=== PATIENT | female | born 1945 | race Caucasian/White ===

== ENCOUNTER 2016-12-03 08:42 | Outpatient (CLI) | payer MEDICARE, MEDICAID ==
--- NOTE | 2016-12-03 10:33 | RAD ---
TWO VIEW CHEST: HISTORY: Dyspnea. COMPARISON: 09/28/2015 FINDINGS: Volume expansion of COPD with flattened diaphragms. The heart is mildly enlarged. Mild aortic calc ification. Vascular markings are upper normal but stable. No infiltrate, edema, or significant eff usion identified. No evidence of significant interval change. Osseous structures are unremarkable. IMPRESSION: 1. Volume expansion of chronic obstructive pulmonary disease. 2. Mild cardiomegaly. 3. No acute infiltrate or vascular congestion. POS: [facility]
== END 2016-12-03 08:43 | disposition home or self-care (01) ==
LOC: RAD 08:42
PROVIDERS: ATTEND Internal Medicine Critical Care Medicine
DX: R06.00 Dyspnea, unspecified (principal); J44.9 Chronic obstructive pulmonary disease, unspecified; I51.7 Cardiomegaly
CPT/HCPCS: 71020

== ENCOUNTER 2017-12-23 09:33 | Outpatient (CLI) | payer MEDICARE, MEDICAID ==
--- NOTE | 2017-12-23 10:35 | RAD ---
PA AND LATERAL CHEST: History: Cough, COPD. FINDINGS: Comparison made with exam of 12-03-16. Changes of COPD are again seen. The heart size is mildly enlarged but sable. The lungs are well expan ded without focal areas of consolidation, pneumothoraces or pleural effusions. There are mild degener ative changes in the spine. IMPRESSION: Stable exam. No acute process. POS: [facility]
== END 2017-12-23 09:34 | disposition home or self-care (01) ==
LOC: RAD-FRANK 09:33
PROVIDERS: ATTEND Nurse Practitioner Family
DX: J44.9 Chronic obstructive pulmonary disease, unspecified (principal); R05 Cough
CPT/HCPCS: 71046

== ENCOUNTER 2018-02-16 08:54 | Inpatient (IN) | payer MEDICARE, MEDICAID ==
[2018-02-16 10:07] LABS: #Lymphocytes 1.3 thou/uL (1.20-3.40); #Monocytes 0.6 thou/uL (0.11-0.59); #Neutrophils 8.2 thou/uL (1.40-6.50); %Basophils 0.2 % (0.0-1.0); %Eosinophils 0.3 % (0.0-10.0); %Monocytes 6.1 % (0.0-10.0); %Neutrophils 80.5 % (42.0-75.0); Hemoglobin 11.8 g/dL (12.0-16.0); Mean Corpuscular HGB CONC 32.1 g/dL (32.0-36.0); Mean Corpuscular Hemoglobin 31.5 pg (27.0-31.0); Mean Corpuscular Volume 98.3 fL (78.0-98.0); Mean Platelet Volume 8.5 fL (7.4-10.4); Platelet Count 170 thou/uL (130-400); RBC Distribution Width 12.4 % (11.5-14.5); Red Blood Cell (RBC) Count 3.73 mill/uL (4.20-5.40); White Blood Cell (WBC) Count 10.2 thou/uL (4.8-10.8)
[2018-02-16 10:28] LABS: ALT (SGPT) 17 U/L (8-55); AST (SGOT) 22 U/L (5-34); Albumin 4.1 g/dL (3.4-4.8); Alkaline Phosphatase 71 U/L (40-150); BUN (Urea Nitrogen) 39 mg/dL (9.8-20.1); Bilirubin, Total 0.5 mg/dL (0.2-1.2); CK (CPK) 102 U/L (29-168); Calc. Creatinine Clearance 0 mL/min (70-130); Estimated GFR-MDRD 54; Globulin 2.7 g/dL (2.4-3.5); Glucose 133 mg/dL (83-110); Lipase 38 U/L (8-78); Protein, Total 6.8 g/dL (6.0-8.3)
[2018-02-16 10:39] LABS: Anion Gap 18 mmol/L (10-20); Carbon Dioxide 36 mmol/L (23-31); Chloride 93 mmol/L (98-107); Potassium 3.5 mmol/L (3.5-5.1); Sodium 143 mmol/L (136-145)
[2018-02-16 10:49] LABS: CKMB 4.7 ng/mL (0-6.6)
[2018-02-16] MEDS ORDERED: Aspirin Chewable 81 MG TAB ONE (11:05)
[2018-02-16 11:10] LABS: Bilirubin Negative (Negative); Blood, Urine Negative (Negative); Clarity CLEAR (Clear); Glucose, Urine (Dipstick) Negative (Negative); Leukocyte Small (Negative); Nitrite Negative (Negative); Protein, Urine (Dipstick) Negative (Neg-Trace); Specific Gravity, Urine 1.015 (1.002-1.036); Urobilinogen 0.2 mg/dL (0.2-1.0); pH, Urine 6.5 (5.0-9.0)
[2018-02-16 11:13] LABS: Bacteria/HPF Rare-Few HPF (None Seen); Hyaline Casts/LPF 0-3 HYALINE CAST LPF (0-3 Hyaline); Pathc Cast-AUWi Flag 0.58 (0-2.49); RBC/HPF 0-3 HPF (0-3); Squamous Epithelial 0-3 HPF (0-3)
--- NOTE | 2018-02-16 11:24 | CT ---
CT HEAD NONCONTRAST: HISTORY: Fall. Head injury. FINDINGS: There is no evidence of acute intracranial hemorrhage or infarct. Ventricles appear normal in size, shape, and position. Diffuse cortical atrophy and mild chronic ischemic small-vessel disease. There is no mass effect or shift of midline structures. Scalp swelling overlies the posterior cranium. IMPRESSION: No acute intracranial abnormalities are demonstrated. POS: [facility]
--- NOTE | 2018-02-16 11:34 | CT ---
CT CERVICAL SPINE NONCONTRAST: HISTORY: Fall. Neck injury. FINDINGS: Vertebral body heights and alignment are maintained. Cervicothoracic junction intact. No acute frac ture or dislocation. Multilevel disk space narrowing. Prominent osteophytosis and central canal isaac nosis. Prominent calcification within the arterial structures with severe stenosis of the left carotid arter y. Large cystic lesion of the left thyroid lobe measures at least 2.7 cm greatest diameter. IMPRESSION: 1. Degenerative changes cervical spine. No acute osseous abnormalities are demonstrated. 2. Atherosclerosis. POS: [facility]
--- NOTE | 2018-02-16 11:59 | RAD ---
PORTABLE AP CHEST XRAY: DATE: 02/16/2018. HISTORY Cough and COPD. COMPARISON: 12/23/2017. FINDINGS: Cardiac silhouette is magnified by projection but does appear mildly enlarged and stable in size. Th ere are mild chronic lung changes seen. No focal area of consolidation or pleural fluid is identifie d. Vascular calcifications are seen in the thoracic aorta. There is osteopenia. The chest is stabl e from prior study. IMPRESSION: 1. No acute cardiopulmonary process. 2. Stable chest with chronic lung changes. 3. Cardiomegaly. POS: [facility]
[2018-02-16 12:30] LABS: Actual Bicarbonate (HCO3a) 40.5 mEq/L (22-28); Analyzer IN Cardio ER; Base Excess (BEa) 10.2 mEq/L (-2.0 to +3.0); Calcium, Ionized 1.19 mmol/L (1.12-1.30); Carboxyhemoglobin (COHb) 0.7 gm% (0.0-3.0); Hemoglobin (Hb) 12.9 g/dL (12.0-16.0); O2 Tension (PaO2) 66.7 mmHg (> 70.0); Potassium - ABG Lab 3.36 mmol/L (3.70-5.30); pH, Arterial 7.27 (7.35-7.45)
--- NOTE | 2018-02-16 12:31 | RAD ---
AP PELVIS RADIOGRAPH: DATE: 02/16/2018. HISTORY: Mechanical fall at home. Trauma. COMPARISON: None available. FINDINGS: There is postsurgical change involving the bilateral hips with antegrade intramedullary mireya and dynam ic compression-type screw transfixing the right proximal femur and a left total hip prosthesis noted in place. The distal aspects of each femoral component is not imaged on this exam. There is otherwi se no definite hardware complication seen. No acute fracture or dislocation is seen. There are neville te fractures deformities involving the left superior and inferior pubic rami. Osteopenia is present. Vascular calcifications overlie the pelvis. IMPRESSION: 1. No obvious acute fracture is seen, and there is no dislocation. 2. Postsurgical changes bilateral hips. 3. Remote fracture and deformities of the left superior and inferior pubic rami. 4. Osteopenia. POS: [facility]
[2018-02-16 12:33] LABS: ALV-art Gradient 70.475 (0-20); CO2 Tension 89.9 mmHg (35.0-45.0); Puncture Site LR
[2018-02-16] MEDS ORDERED: Dexamethasone 10 MG/ML VIAL ONE (13:00)
[2018-02-16] MEDS ORDERED: Magnesium 2 GM/50 ML 2 GM in Premix Bag 1 BAG IVPB SCH (13:00)
[2018-02-16] MEDS ORDERED: Albuterol Sulfate 2.5 mg/0.5 ml Neb ONE ×2 (13:21)
[2018-02-16 13:50] LABS: Troponin I 0.061 ng/mL (< 0.028)
[2018-02-16] MEDS ORDERED: Ondansetron PF 4 MG/2 ML Vial IVP PRN ×2 (18:01→19:13)
[2018-02-16] MEDS ORDERED: Ondansetron ODT 4 MG TAB SL PRN (18:01)
[2018-02-16] MEDS ORDERED: Sodium Chloride 0.9% 1,000 ML IV SCH (18:01)
[2018-02-16 18:06] LABS: Troponin I 0.085 ng/mL (< 0.028)
[2018-02-16] MEDS ORDERED: Ondansetron ODT 4 MG TAB PO PRN (19:13)
[2018-02-16] MEDS: Famotidine 20 MG TAB PO SCH (21:00)
[2018-02-16] MEDS ORDERED: Dexamethasone 4 mg/ml Vial SLOW IVP SCH (21:00)
[2018-02-17] MEDS ORDERED: Labetalol HCl 100 MG/20 ML VIAL SLOW IVP PRN (03:49)
[2018-02-17] MEDS ORDERED: hydrALAZINE 20 MG/ML VIAL SLOW IVP PRN (03:49)
[2018-02-17 04:52] LABS: #Lymphocytes 0.4 thou/uL (1.20-3.40); #Monocytes 0.2 thou/uL (0.11-0.59); #Neutrophils 4.4 thou/uL (1.40-6.50); %Eosinophils 0.2 % (0.0-10.0); %Monocytes 3.1 % (0.0-10.0); %Neutrophils 89.7 % (42.0-75.0); Hemoglobin 10.7 g/dL (12.0-16.0); Mean Corpuscular HGB CONC 32.7 g/dL (32.0-36.0); Mean Corpuscular Hemoglobin 32.1 pg (27.0-31.0); Mean Corpuscular Volume 98.4 fL (78.0-98.0); Mean Platelet Volume 9.5 fL (7.4-10.4); Platelet Count 129 thou/uL (130-400); RBC Distribution Width 12.6 % (11.5-14.5); Red Blood Cell (RBC) Count 3.32 mill/uL (4.20-5.40); White Blood Cell (WBC) Count 4.9 thou/uL (4.8-10.8)
[2018-02-17 05:13] LABS: ALT (SGPT) 15 U/L (8-55); AST (SGOT) 21 U/L (5-34); Albumin 3.6 g/dL (3.4-4.8); Alkaline Phosphatase 52 U/L (40-150); Anion Gap 12 mmol/L (10-20); BUN (Urea Nitrogen) 29 mg/dL (9.8-20.1); Bilirubin, Total 0.5 mg/dL (0.2-1.2); Calc. Creatinine Clearance 46 mL/min (70-130); Calcium 9.4 mg/dL (7.8-10.44); Carbon Dioxide 36 mmol/L (23-31); Chloride 98 mmol/L (98-107); Estimated GFR-MDRD 60; Globulin 2.5 g/dL (2.4-3.5); Glucose 182 mg/dL (83-110); Potassium 3.3 mmol/L (3.5-5.1); Protein, Total 6.1 g/dL (6.0-8.3); Sodium 143 mmol/L (136-145)
[2018-02-17] MEDS ORDERED: Nitroglycerin 2% Ointment 1 INCH/1 GM Packet ONE (08:10)
[2018-02-17] MEDS ORDERED: Nitroglycerin 2% Ointment 1 INCH/1 GM Packet TOP SCH (08:30)
--- NOTE | 2018-02-17 10:18 | ULT ---
CAROTID DOPPLER: DATE: 02/17/2018. PROVIDED CLINICAL HISTORY: Syncope. FINDINGS: Hyde scale and color Doppler sonography with spectral analysis was performed of the extracranial campos tid system bilaterally. There is conspicuous atherosclerotic plaque involving the left common caroti d artery and left proximal internal carotid artery. There is elevation of peak systolic velocity wit hin the left internal carotid artery in the mid portion to 291.2 cm/s, with a corresponding ICA to CC A ratio of 3.5. There is elevation of peak systolic velocity within the distal right internal caroti d artery to 159.4 cm/s with a corresponding ICA to CCA ratio of 1. Antegrade flow is seen in the rig ht vertebral artery. No flow is detected within the left vertebral artery. IMPRESSION: 1. Findings compatible with severe left internal carotid artery stenosis. 2. Possible moderate right internal carotid artery stenosis. 3. No flow is detected in the left vertebral artery, presumably reflecting occlusion. POS: [facility]
[2018-02-17] MEDS ORDERED: ALPRAZolam 0.25 MG TAB PO PRN (11:55)
[2018-02-17] MEDS ORDERED: PROVENTIL INHALER 6.7 G (200 INHALATIONS) INH PRN (11:55)
[2018-02-17] MEDS ORDERED: Acetaminophen/Codeine 30-300mg Tablet PO PRN (11:55)
[2018-02-17] MEDS ORDERED: Metoprolol Tartrate 25 MG TAB PO SCH (12:00)
[2018-02-17] MEDS ORDERED: Lisinopril/Hydrochlorothiazide 20/25 mg Tablet PO SCH (12:00)
[2018-02-17] MEDS ORDERED: Metoprolol Tartrate 5 MG/5 ML VIAL ONE (12:26)
[2018-02-17] MEDS: Famotidine 20 MG TAB PO SCH ×2 (12:35→20:49)
[2018-02-17] MEDS ORDERED: Ipratropium Bromide 2.5 ml Neb ONE (12:42)
[2018-02-17] MEDS ORDERED: Potassium Chloride 20 MEQ TAB PO SCH (12:45)
[2018-02-17] MEDS ORDERED: Metoprolol Tartrate 5 MG/5 ML VIAL IVP SCH (12:45)
[2018-02-17 13:12] VITALS: BMI 22.7
[2018-02-17] MEDS: Furosemide 20 MG TAB PO SCH (14:14)
--- NOTE | 2018-02-17 14:27 | PRG ---
DATE OF SERVICE: 02/17/2018 SUBJECTIVE: The patient reports that she feels okay at the moment. Her primary complaint is that she is starting to feel somewhat shaky. The patient reports that typically at home her blood pressure runs high when she was surprised to hear that it had been significantly low in the emergency department yesterday. The patient reports that she is breathing relatively well, but would like to have nebulizer treatment. She takes this routinely at home. She denies any headache, numbness, weakness, or tingling at this point. We reviewed her history. She has had couple of previous falls, one resulting in a hip fracture, another resulting in a femur fracture. The first was her trying to get out of the way of someone, who was about to bump into her when she fell. The other is when she literally slid off some tightened sheet in a hotel room onto the floor. On this occasion, the patient had gotten up to go to the bathroom. She walked across the room to document the time and when she turned around, she felt like she had a slow motion fall to the ground. She bumped her head on the knob of something next to her. She completely denies that she ever lost consciousness with this. She also reports that she has never had significant cardiac workup that she is aware of. She says Dr. Washington did actually do a left carotid endarterectomy on her in the past, and he saw her in February and told her he was not concerned with her carotid situation. OBJECTIVE: VITAL SIGNS: Currently, systolic blood pressure is 180s, diastolic is 110s, pulse is in the 120s. GENERAL APPEARANCE: The patient is sitting on the side of the bed. She appears relatively comfortable, but she does have a slight tremor. She is awake, alert, oriented, pleasant, cooperative. HEENT: Exam reveals ecchymoses on the posterior scalp that is 3 to 4 cm in size. It is not significantly raised. It is nontender. HEART: Tachycardic with occasional ectopy. She has no murmurs. LUNGS: Significantly diminished throughout with occasional scattered rales. No wheezing noted. ABDOMEN: Soft, nontender. EXTREMITIES: Warm and dry. She has trace edema in both lower extremities. The forefoot and toes on both feet are purple, but they are blanchable. They are warm. She does have dorsalis pedis pulses palpable. LABORATORY DATA: White count 4.9, hemoglobin 10.7, platelets 129. Sodium 143, potassium 3.3, chloride 98, CO2 is 36, BUN 29, creatinine 0.92, glucose 182. Troponin peaked at 0.085 thus far. New results include carotid Doppler, which reveals evidence of severe left internal carotid artery stenosis, possible moderate right internal carotid artery stenosis and possible occlusion of the left vertebral artery. IMPRESSION AND PLAN: 1. Fall. The patient has had falls in the past, but this one appears to be different. It does not appear that she had a true syncopal episode, although concerning for something possibly presyncopal or near syncopal. She has echocardiogram pending. Carotids do show somewhat carotid stenosis. We will keep her on telemetry. 2. Scalp contusion. The patient hit her head and she was going to the ground. She appears to be neurologically intact. Presently, she is spontaneously moving all extremities with no deficits and cognitively she is intact. She is on aspirin and her platelet count is very slightly low. We will need to continue to monitor her closely for any new neurologic deficits. At which time, we would need to immediately rescan her head. 3. Carotid stenosis. I cannot find any records from followup with Dr. Washington in February. We will continue to search for that. Meantime, may need to have followup on that with Cardiovascular Surgery. 4. Hypertension. The patient's blood pressure is very high. She was actually hypotensive in the emergency room yesterday, but she appears to have responded. I am going to put her back on her usual home medications. She is also tachycardic. She is typically on a beta jigna. I am going to give her 5 mg of IV labetalol and resume her usual metoprolol and lisinopril-hydrochlorothiazide doses. 5. Chronic obstructive pulmonary disease. The patient has very diminished breath sounds. She is on oxygen. She appears fairly comfortable at the moment. We will resume her nebulizer treatments and inhalers. I do not believe this represents a significant exacerbation requiring steroids and there is no indication for antibiotics presently. 6. Cardiac. The patient has elevated troponins, although they are only minimally elevated. This may be related to her hypotensive episode that occurred yesterday. Given her symptoms, we will go ahead and consult Cardiology. DISPOSITION: The patient was requiring some BiPAP yesterday, which she is off now. We will keep her in IMCU and have Pulmonary followup with her as well. Given her blood pressure and tachycardia, we will keep her in IMCU for now. We will ask Physical Therapy and see if we can get her up and around a little bit and ensure that she is going to be neurologically stable enough to move about. We will need to watch her neuro status closely in the IMCU as well. Job ID: [id number]
[2018-02-17] MEDS: Ipratropium Bromide 2.5 ml Neb NEB SCH ×2 (15:16→18:22)
--- NOTE | 2018-02-17 17:39 | CON ---
DATE OF CONSULTATION: 02/17/2018 CONSULT PHYSICIAN: Hospitalist group. REASON FOR CONSULTATION: COPD. Following encompassed 50 minutes of time, of that time, greater than 50% spent with the patient and/or in the patient's unit in the hospital. HISTORY OF PRESENT ILLNESS: This is a 72-year-old female, who fell at home yesterday. She sustained a knot on her head. She also has scraped her elbow. She says she basically stood up from a chair and lost her balance and fell. Her family was concerned that "there had to be a reason that she fell." The patient says her breathing has been stable. She is on oxygen and breathing treatments at home. PAST MEDICAL HISTORY: 1. Hypertension. 2. Congestive heart failure. 3. Anemia. 4. COPD. 5. Obesity. PAST SURGICAL HISTORY: 1. Left hip surgery. 2. Carotid endarterectomy. 3. . 4. Carpal tunnel release. FAMILY MEDICAL HISTORY: Remarkable for diabetes and stroke. Father had leukemia. ALLERGIES: TYLENOL WITH CODEINE CAUSES HER TO FEEL FUNNY. MEDICATIONS: Prior to admission; 1. Aspirin 81 mg daily. 2. Ventolin metered-dose inhaler as needed. 3. Sertraline 100 mg daily. 4. Protonix 40 mg daily. 5. Metoprolol 25 mg b.i.d. 6. Lisinopril/hydrochlorothiazide 20/25 one tablet daily. 7. Atrovent nebulized 4 times daily. 8. Lasix 20 mg twice daily. 9. Budesonide 0.5 mg twice daily. 10. Xanax 0.25 mg twice daily as needed. SOCIAL HISTORY: Quit smoking a year ago. Lives at home with her family. Not up-to-date on her influenza vaccine. PHYSICAL EXAMINATION: VITAL SIGNS: Temperature 99.5, pulse 102, respirations 22, O2 saturation 100% on 3 L, and blood pressure 168/105. GENERAL: She is awake and alert, and in no distress HEENT: Unremarkable. NECK: No JVD. LUNGS: Diminished, but clear breath sounds. CARDIAC: S1 and S2. Regular. ABDOMEN: Soft. EXTREMITIES: No edema, but has bruising over arms. LABORATORY DATA: Sodium 143, potassium 3.3, BUN 29, creatinine 0.9, and glucose 182. A pH of 7.27, pCO2 of 89, and pO2 of 66. White blood cell count 4.9, hematocrit 32.7, and platelet count 129. X-ray shows flat diaphragms, clear lung tsang. ASSESSMENT: Chronic hypercapnic respiratory failure with acute exacerbation of her chronic obstructive pulmonary disease. I think she likely got hypercapnic at home and probably passed out secondary to that. RECOMMENDATION: I would treat her with low-dose steroids, nebulization therapy, and watch her for a day or 2. She might need BiPAP intermittently. I will go ahead and get her influenza vaccination. Job ID: [id number]
[2018-02-17] MEDS: Budesonide 0.5 MG/2 ML NEB NEB SCH (18:22)
[2018-02-17] MEDS: predniSONE 20 MG TAB PO SCH (20:49)
[2018-02-17] MEDS: Metoprolol Tartrate 25 MG TAB PO SCH (20:49)
--- NOTE | 2018-02-17 22:40 | CON ---
DATE OF CONSULTATION: REASON FOR CONSULTATION: Possible syncope. HISTORY OF PRESENT ILLNESS: Ms. Rm is a pleasant 72-year-old white female who comes to the hospital for fall. She was at home, she took her nebulization, she usually stands up, goes to the paper where she writes the schedule of her nebs and she wrote down that she had taken her neb, she does this leaning down on the table, standing up. She stood up and turned around to walk back to her chair and she felt unsteady and fell. She remembers falling down, scraping her elbow and hitting her head on a door knob. She had bleeding on the back of her scalp, so she called for help and she was brought in. She has had several falls in the last few months including one that had her have to have a broken hip and a hip surgery for this. Family is concerned that there might be a reason for this fall, so Cardiology is being consulted. PAST MEDICAL HISTORY: 1. Hypertension. 2. History of diastolic heart failure. 3. Chronic anemia. 4. COPD. 5. Obesity. PAST SURGICAL HISTORY: 1. Left hip surgery. 2. Carotid endarterectomy. 3. . 4. Carpal tunnel release. 5. PVD with moderate lesion on her right leg. FAMILY HISTORY: Diabetes and stroke. Father with leukemia. OUTPATIENT MEDICATIONS: 1. Aspirin 81 a day. 2. Ventolin metered dose inhaler. 3. Sertraline. 4. Protonix. 5. Metoprolol 25 mg b.i.d. 6. Lisinopril/hydrochlorothiazide 20/25 a day. 7. Atrovent. 8. Lasix 20 mg twice a day. 9. Bumex 0.5 mg twice a day. 10. Xanax p.r.n. ALLERGIES: TYLENOL WITH CODEINE CAUSES HER TO FEEL DIFFERENT. REVIEW OF SYSTEMS: A 12-point review of systems was done and was found to be negative unless stated in the history of present illness. PHYSICAL EXAMINATION: VITAL SIGNS: Temperature 98.8, pulse 128, respiratory rate 16, saturating 90% on 3 L, and blood pressure 94/56. GENERAL: Awake, alert, and oriented x3, in no distress, talking in short sentences due to her chronic oxygen-dependent COPD. HEENT: Normocephalic. LUNGS: Have reduced breath sounds bilaterally significantly. CARDIOVASCULAR: Distant heart sounds, S1 and S2. ABDOMEN: Soft. Positive bowel sounds. EXTREMITIES: No edema. SKIN: Warm and dry. LABORATORY DATA: Laboratory work was reviewed. CBC, blood gas, and chemistries were reviewed. Troponin is 0.03, 0.06, 0.08. BNP is 420. UA is unremarkable. Echocardiogram was reviewed. She has normal LV systolic function, but her right ventricle is dilated with reduced function with elevated pulmonary pressures at 120 mmHg. ASSESSMENT AND PLAN: 1. Pulmonary hypertension. 2. Severe chronic obstructive pulmonary disease, possible exacerbation. 3. Fall. PLAN: At this point, I agree that mostly the cause might have been a little bit orthostatic hypotension versus hypercapnic and falling from this. She remember somewhat of the fall, which would go against syncope. She is currently not too interested in any very invasive interventions. We will see how her COPD does the next few days and re-evaluate on daily basis. We will follow. Job ID: [id number]
[2018-02-18 05:25] LABS: ALT (SGPT) 14 U/L (8-55); AST (SGOT) 25 U/L (5-34); Albumin 3.4 g/dL (3.4-4.8); Alkaline Phosphatase 47 U/L (40-150); BUN (Urea Nitrogen) 36 mg/dL (9.8-20.1); Bilirubin, Total 0.3 mg/dL (0.2-1.2); Calc. Creatinine Clearance 44 mL/min (70-130); Calcium 9.4 mg/dL (7.8-10.44); Estimated GFR-MDRD 56; Globulin 2.3 g/dL (2.4-3.5); Glucose 140 mg/dL (83-110); Protein, Total 5.7 g/dL (6.0-8.3)
[2018-02-18 05:34] LABS: Anion Gap 13 mmol/L (10-20); Carbon Dioxide 36 mmol/L (23-31); Chloride 99 mmol/L (98-107); Potassium 4.6 mmol/L (3.5-5.1); Sodium 143 mmol/L (136-145)
[2018-02-18] MEDS: Ipratropium Bromide 2.5 ml Neb NEB SCH ×4 (07:45→22:06)
[2018-02-18] MEDS: Budesonide 0.5 MG/2 ML NEB NEB SCH ×2 (07:45→22:06)
[2018-02-18] MEDS: Lisinopril/Hydrochlorothiazide 20/25 mg Tablet PO SCH (08:00)
[2018-02-18] MEDS: Aspirin 81 mg Enteric Coated Tablet PO SCH (08:24)
[2018-02-18] MEDS: Furosemide 20 MG TAB PO SCH ×2 (08:24→13:32)
[2018-02-18] MEDS: predniSONE 20 MG TAB PO SCH ×2 (08:24→20:09)
[2018-02-18] MEDS: Famotidine 20 MG TAB PO SCH ×2 (08:24→20:08)
[2018-02-18] MEDS: Metoprolol Tartrate 25 MG TAB PO SCH ×2 (08:24→20:09)
[2018-02-18] MEDS ORDERED: Non-Formulary Item 1 EACH (Sertraline Hcl [Sertraline Hcl] 100 MG) PO SCH (09:00)
--- NOTE | 2018-02-18 10:10 | CON ---
DATE OF CONSULTATION: HISTORY OF PRESENT ILLNESS: This is a 72-year-old female, who was admitted following a near syncopal episode accompanied by troponin elevation. She has a history of hypertension, chronic anemia, COPD, carotid artery disease, and severe peripheral artery disease. She suffered a small laceration to the back of her head and was noted to have a slight troponin leak and was seen by Cardiology, who suspected that she just had severe chronic obstructive disease with pulmonary hypertension based on a cardiac echo showing PA pressure of 120. Additionally, a carotid ultrasound was done, showing elevated systolic pressures to 291 cm/second in the left internal carotid artery with ICA/CCA ratio of 3.5 and elevated right-sided velocities of 159 with a history of right carotid endarterectomy in 2009. PHYSICAL EXAMINATION: VITAL SIGNS: On examination, she has a blood pressure of 126/100, heart rate of 80. NECK: Demonstrates no carotid bruits. CARDIAC: Regular rate and rhythm. CHEST: No wheezes. Increased chest AP diameter. ABDOMEN: Soft, nontender, and nondistended. EXTREMITIES: She has purple toes bilaterally with mild edema of the lower legs. Palpable femoral pulses and no distal pulses. Previously, she was noted to have no Doppler signals in her left foot and an ankle arm index on the right of about 0.75. SOCIAL HISTORY: The patient lives with her daughter. Currently, says she has not smoked in about one year, although when I saw her about six months ago, she was smoking a couple of cigarettes a day. I do not believe her left carotid stenosis is symptomatic at this time, and given her comorbidities of pulmonary hypertension and advanced COPD, I think elective intervention is probably not warranted and we will follow up with her in the office in 6 months with a repeat carotid ultrasound. Job ID: [id number]
--- NOTE | 2018-02-18 11:07 | PRG ---
DATE OF SERVICE: SUBJECTIVE: This is morning, she states she is doing better. She was seen by Dr. Washington. Cardiovascular Surgery is going to see her in 6 months for ongoing surveillance of her carotid stenosis. This morning, said she is feeling better, was still short of breath. No fever or chills. OBJECTIVE: VITAL SIGNS: Off the BiPAP, blood pressure is 126/105, saturations 100 on 3 L, temperature 98, respirations 16. CHEST: Decreased breath sounds. No wheezing. CARDIAC: Normal S1 and S2. No gallops. ABDOMEN: No masses. IMPRESSION: Chronic obstructive pulmonary disease, former smoker, congestive heart failure, mild azotemia, peripheral vascular disease. PLAN: Continue neb treatments and Symbicort. She probably can be transferred out of the MICU. Job ID: [id number]
--- NOTE | 2018-02-18 11:21 | PDOC.CTH ---
Cardiology Progress Note - Subjective No new issues. BP very labile. - Objective Vital Signs Temp Pulse Resp BP BP Pulse Ox 02/18/18 11:14 127 H 20 02/18/18 11:01 98.4 F 78 23 H 108/67 02/18/18 08:20 126/105 H 100 02/18/18 08:00 87 02/18/18 07:47 99 02/18/18 07:45 87 16 99 02/18/18 07:30 98.9 F 61 20 92/44 L 100 02/18/18 04:00 99.6 F 61 16 115/64 100 02/18/18 00:00 97.4 F L 67 18 93/57 L 99 Admit Weight 120 lb 4.8 oz Weight 120 lb 4.8 oz 02/17/18 02/18/18 02/19/18 06:59 06:59 06:59 Intake Total 950 1960 Output Total 500 300 Balance 450 1660 - Physical Examination General/Neuro: alert & oriented x3, NAD Neck: no JVD present Lungs: other: (severely reduced breath sounds bilat) Heart: RRR Abdomen: NT/ND Extremities: + edema B (2+) - Telemetry Telemetry Rhythm: NSR - Labs Result Diagrams: 02/17/18 04:16 02/18/18 04:57 Troponin/CKMB CK-MB (CK-2) 4.7 ng/mL (0-6.6) 02/16/18 09:55 Troponin I 0.085 ng/mL (< 0.028) H 02/16/18 17:42 - Assessment/Plan 1. Fall 2. COPD with exacerbation 3. Labile HTN 4. Pulmonary HTN. PLAN: - She remembers falling and hitting her head. Not consistent with syncope or presyncope. - Will hold off on LINQ at this time unless she recurs or has true syncope.
[2018-02-18 12:17] LABS: #Basophils 0.1 thou/uL (0.0-0.2); #Lymphocytes 0.5 thou/uL (1.20-3.40); #Monocytes 0.3 thou/uL (0.11-0.59); #Neutrophils 5.7 thou/uL (1.40-6.50); %Basophils 1.3 % (0.0-1.0); %Eosinophils 0.3 % (0.0-10.0); %Lymphocytes 7.6 % (21.0-51.0); %Monocytes 4.4 % (0.0-10.0); %Neutrophils 86.4 % (42.0-75.0); Hemoglobin 10.5 g/dL (12.0-16.0); Mean Corpuscular HGB CONC 31.6 g/dL (32.0-36.0); Mean Platelet Volume 9.5 fL (7.4-10.4); Platelet Count 117 thou/uL (130-400); RBC Distribution Width 12.8 % (11.5-14.5); Red Blood Cell (RBC) Count 3.27 mill/uL (4.20-5.40); White Blood Cell (WBC) Count 6.6 thou/uL (4.8-10.8)
--- NOTE | 2018-02-18 13:49 | PDOC.PN ---
- Subjective Encounter Start Date: 02/18/18 Encounter Start Time: 11:20 Feeling so-so. No new or specific complaints. Has had a great-grandchild at her home with a bad stomach virus and fearful of going home until it is sterilized. - Objective Vital Signs & Weight: Vital Signs (12 hours) Temp Pulse Resp BP BP Pulse Ox 02/18/18 11:14 127 H 20 02/18/18 11:01 98.4 F 78 23 H 108/67 02/18/18 08:20 126/105 H 100 02/18/18 08:00 87 02/18/18 07:47 99 02/18/18 07:45 87 16 99 02/18/18 07:30 98.9 F 61 20 92/44 L 100 02/18/18 04:00 99.6 F 61 16 115/64 100 Weight Admit Weight 120 lb 4.8 oz Weight 120 lb 4.8 oz I&O: 02/17/18 02/18/18 02/19/18 06:59 06:59 06:59 Intake Total 950 1960 Output Total 500 300 Balance 450 1660 Result Diagrams: 02/18/18 04:57 02/18/18 04:57 Phys Exam - Physical Examination Constitutional: NAD Frail Respiratory: no wheezing, no rales Very diminished. Cardiovascular: RRR, no significant murmur Gastrointestinal: soft, non-tender, no distention, positive bowel sounds Musculoskeletal: no edema, pulses present Neurological: non-focal Psychiatric: normal affect, A&O x 3 Dx/Plan (1) Acute and chronic respiratory failure with hypoxia Code(s): J96.21 - ACUTE AND CHRONIC RESPIRATORY FAILURE WITH HYPOXIA Status: Acute (2) Fall Code(s): W19.XXXA - UNSPECIFIED FALL, INITIAL ENCOUNTER Status: Acute (3) Head contusion Code(s): S00.93XA - CONTUSION OF UNSPECIFIED PART OF HEAD, INITIAL ENCOUNTER Status: Acute (4) Near syncope Status: Acute (5) Carotid stenosis Code(s): I65.29 - OCCLUSION AND STENOSIS OF UNSPECIFIED CAROTID ARTERY Status : Acute (6) Labile hypertension Code(s): I10 - ESSENTIAL (PRIMARY) HYPERTENSION Status: Acute - Plan * BP more stable on home meds. * Pulmonolgy started steroids and recommended we watch her for a day or two to ensure stability. Required BiPAP initially. * Discussed with Dr. Washington. He is ok with her following up with him in 6 months regarding the carotid stenosis. * Stable cardiac situation. Discussed with Dr. Smith. Severe pulm HTN. * Transfer to floor. * Hope to discharge to home tomorrow.
[2018-02-19] MEDS: Budesonide 0.5 MG/2 ML NEB NEB SCH ×2 (06:00→19:05)
[2018-02-19] MEDS: Ipratropium Bromide 2.5 ml Neb NEB SCH ×4 (06:00→19:05)
[2018-02-19 08:52] LABS: #Monocytes 0.7 thou/uL (0.11-0.59); %Basophils 0.2 % (0.0-1.0); %Eosinophils 0.2 % (0.0-10.0); %Lymphocytes 12.8 % (21.0-51.0); %Monocytes 8.5 % (0.0-10.0); %Neutrophils 78.2 % (42.0-75.0); Hemoglobin 11.5 g/dL (12.0-16.0); Mean Corpuscular HGB CONC 31.6 g/dL (32.0-36.0); Mean Corpuscular Hemoglobin 31.4 pg (27.0-31.0); Mean Corpuscular Volume 99.5 fL (78.0-98.0); Mean Platelet Volume 8.9 fL (7.4-10.4); Platelet Count 134 thou/uL (130-400); RBC Distribution Width 12.5 % (11.5-14.5); Red Blood Cell (RBC) Count 3.65 mill/uL (4.20-5.40); White Blood Cell (WBC) Count 7.6 thou/uL (4.8-10.8)
[2018-02-19 09:13] LABS: BUN (Urea Nitrogen) 52 mg/dL (9.8-20.1); Calc. Creatinine Clearance 37 mL/min (70-130); Calcium 9.6 mg/dL (7.8-10.44); Estimated GFR-MDRD 47; Glucose 118 mg/dL (83-110)
[2018-02-19 09:22] LABS: Anion Gap 18 mmol/L (10-20); Carbon Dioxide 34 mmol/L (23-31); Chloride 94 mmol/L (98-107); Sodium 142 mmol/L (136-145)
[2018-02-19] MEDS: predniSONE 20 MG TAB PO SCH ×2 (09:47→21:15)
[2018-02-19] MEDS: Furosemide 20 MG TAB PO SCH ×2 (09:47→14:55)
[2018-02-19] MEDS: Famotidine 20 MG TAB PO SCH ×2 (09:47→21:15)
[2018-02-19] MEDS: Metoprolol Tartrate 25 MG TAB PO SCH ×2 (09:48→21:15)
[2018-02-19] MEDS: Aspirin 81 mg Enteric Coated Tablet PO SCH (09:48)
[2018-02-19] MEDS: Lisinopril/Hydrochlorothiazide 20/25 mg Tablet PO SCH (10:34)
--- NOTE | 2018-02-19 14:11 | PDOC.PN ---
- Subjective Encounter Start Date: 02/19/18 Encounter Start Time: 10:10 Feeling a little better today. - Objective Vital Signs & Weight: Vital Signs (12 hours) Temp Pulse Resp BP BP BP Pulse Ox 02/19/18 13:25 69 16 92 L 02/19/18 12:00 80 28 H 100/60 02/19/18 10:34 70 109/61 02/19/18 09:24 70 18 96 02/19/18 08:00 98.2 F 66 28 H 109/61 90 L 02/19/18 06:00 69 18 92 L 02/19/18 03:45 98.9 F 67 18 129/68 92 L Weight Admit Weight 120 lb 4.8 oz Weight 120 lb 4.8 oz I&O: 02/18/18 02/19/18 02/20/18 06:59 06:59 06:59 Intake Total 1960 1180 Output Total 300 125 Balance 1660 1055 Result Diagrams: 02/19/18 08:45 02/19/18 08:45 Phys Exam - Physical Examination Constitutional: NAD Speaking in full sentences. Respiratory: no wheezing, no rales, no rhonchi Very diminished BS. Cardiovascular: RRR, no significant murmur Gastrointestinal: soft, non-tender, no distention Musculoskeletal: no edema Psychiatric: normal affect, A&O x 3 Skin: normal turgor Dx/Plan (1) Acute and chronic respiratory failure with hypoxia Code(s): J96.21 - ACUTE AND CHRONIC RESPIRATORY FAILURE WITH HYPOXIA Status: Acute (2) Fall Code(s): W19.XXXA - UNSPECIFIED FALL, INITIAL ENCOUNTER Status: Acute (3) Head contusion Code(s): S00.93XA - CONTUSION OF UNSPECIFIED PART OF HEAD, INITIAL ENCOUNTER Status: Acute (4) Near syncope Status: Acute (5) Carotid stenosis Code(s): I65.29 - OCCLUSION AND STENOSIS OF UNSPECIFIED CAROTID ARTERY Status : Acute (6) Labile hypertension Code(s): I10 - ESSENTIAL (PRIMARY) HYPERTENSION Status: Acute - Plan * Doing well. Patient trying to get a hospital bed for home. Trying to get her house disinfected after sick [facility] was there. * Would like to see Dr. Smiley. Discussed this with him. * Continue current plan. Anticipate discharge in am.
--- NOTE | 2018-02-19 17:41 | PRG ---
DATE OF SERVICE: 02/19/2018 SUBJECTIVE: Jessa Rm is feeling better. She state she might feel like going home tomorrow. OBJECTIVE: VITAL SIGNS: She is afebrile, heart rate is between 69 and 80, respiratory rate 17, oximetry is 92 on 3 L, and blood pressure is 100/60. LUNGS: Remarkable for the end-expiratory wheezes. HEART: Regular rhythm. ABDOMEN: Soft and nontender. EXTREMITIES: With no edema. She tells me she had a large blister on her lower extremity a couple of months ago that was lanced by her primary care provider and then treated with wet-to-dry dressings. Thankfully, it healed quickly. IMPRESSION: 1. Chronic obstructive pulmonary disease with exacerbation. 2. Congestive heart failure. 3. Status post fall. 4. Hypertension. 5. Peripheral vascular disease. Seen by Dr. Washington this admission. He does not feel her carotid disease on the left is symptomatic. We plan to follow her as an outpatient. We will continue to follow with other physicians caring for Ms. Rm. Hopefully, we can consider discharging her home in the morning. Job ID: [id number] [facility]
--- NOTE | 2018-02-19 17:53 | PDOC.CTH ---
Cardiology Progress Note - Subjective No new issues. No syncope, presyncope, no falls. - Objective Vital Signs Temp Pulse Resp BP BP BP Pulse Ox 02/19/18 13:25 69 16 92 L 02/19/18 12:00 80 28 H 100/60 02/19/18 10:34 70 109/61 02/19/18 09:24 70 18 96 02/19/18 08:00 98.2 F 66 28 H 109/61 90 L 02/19/18 06:00 69 18 92 L Admit Weight 120 lb 4.8 oz Weight 120 lb 4.8 oz 02/18/18 02/19/18 02/20/18 06:59 06:59 06:59 Intake Total 1960 1180 800 Output Total 300 125 Balance 1660 1055 800 - Physical Examination General/Neuro: alert & oriented x3, NAD Neck: no JVD present Lungs: other: (Reduced breath sounds bilat.) Heart: RRR Abdomen: NT/ND Extremities: other: (no edema) - Labs Result Diagrams: 02/19/18 08:45 02/19/18 08:45 Troponin/CKMB CK-MB (CK-2) 4.7 ng/mL (0-6.6) 02/16/18 09:55 Troponin I 0.085 ng/mL (< 0.028) H 02/16/18 17:42 - Assessment/Plan 1. Fall 2. COPD with exacerbation 3. Labile HTN 4. Pulmonary HTN. PLAN: - No LINQ at this time unless she recurs or has true syncope. - Will sign off. please call with any questions. - Follow up in the office in 3 months.
[2018-02-20] MEDS ORDERED: Polyethylene Glycol 3350 17 GM Packet PO PRN (05:25)
[2018-02-20] MEDS: Budesonide 0.5 MG/2 ML NEB NEB SCH (07:13)
[2018-02-20] MEDS: Ipratropium Bromide 2.5 ml Neb NEB SCH ×3 (07:18→13:20)
[2018-02-20] MEDS: Lisinopril/Hydrochlorothiazide 20/25 mg Tablet PO SCH (07:52)
[2018-02-20] MEDS: Furosemide 20 MG TAB PO SCH ×2 (07:52→15:32)
[2018-02-20] MEDS: predniSONE 20 MG TAB PO SCH (07:52)
[2018-02-20 07:53] VITALS: BP 171/79
[2018-02-20] MEDS: Famotidine 20 MG TAB PO SCH (07:53)
[2018-02-20] MEDS: Aspirin 81 mg Enteric Coated Tablet PO SCH (07:53)
[2018-02-20] MEDS: Metoprolol Tartrate 25 MG TAB PO SCH (07:53)
[2018-02-20 08:12] VITALS: TEMP 97.4
--- NOTE | 2018-02-20 16:46 | PRG ---
DATE OF SERVICE: 02/20/2018 SUBJECTIVE: Ms. Rm says she is ready to go home. OBJECTIVE: VITAL SIGNS: Afebrile. Heart rates in the 70s, respiratory rates in the teens to low 20s, oximetry is 93% on 3 L. Blood pressure when last checked was 171/79. LUNGS: Clear. HEART: Regular rhythm. S1 and S2 are normal. ABDOMEN: Soft, nontender. EXTREMITIES: Without edema. LABORATORY DATA: There is no new lab. IMPRESSION: Chronic obstructive pulmonary disease exacerbation. I believe she is stable to go home. I placed her on prednisone 40 mg for 2 days and 20 mg for 6 days and she will take 10 mg until she sees me on the . When she sees me, we will do a reassessment of need for oxygen to recertify her for oxygen therapy, but it is very clear that she will need oxygen the rest of her life. Job ID: [id number]
--- NOTE | 2018-02-20 22:51 | DIS ---
DATE OF ADMISSION: 02/16/2018 DATE OF DISCHARGE: 02/20/2018 DISCHARGE DIAGNOSES: 1. Head contusion. 2. Near syncope. 3. Fall. 4. Mild essential hypertension. 5. Carotid stenosis. 6. Acute on chronic respiratory failure with hypoxemia. 7. Chronic obstructive pulmonary disease. HISTORY OF PRESENT ILLNESS: This patient is a 72-year-old female with a history of significant COPD, who is at home. She subsequently went back to record her bathroom visits in her notebook and when she turned around, she felt like she had a slow motion fall to the ground. She bumped the back of her head on a knob and had a small contusion with some superficial bleeding. She was subsequently brought to the hospital for further evaluation. The patient's respiratory status decline into the point that she required BiPAP. The patient reported that she did not fully lose consciousness at any point during her fall. She was subsequently admitted to the hospital. She developed substantial tachycardia and hypertension. The morning after her admission, she was started back on all of her usual medication regimen and her numbers improved substantially. She had an echocardiogram for near syncope, which revealed an ejection fraction of 60% to 65% with grade 1 diastolic dysfunction. She had dilated right ventricle with reduced right ventricular function, severe tricuspid regurg and severe elevated pulmonary artery pressure estimated at 120, representing severe pulmonary hypertension likely related to her COPD. Carotid Dopplers revealed substantial stenosis on the left carotid. The patient had previous surgery on that side with Dr. Washington. He was asked to evaluate the patient, but did not feel like this was contributory to any of her symptoms. She was also seen in consultation by Dr. Smith of Cardiology for near syncope and he ultimately felt that the patient did not have a true syncopal episode and did not require a LINQ recorder at this time. The patient continued to receive nebulizer treatments and some steroids for her pulmonary situation and was able to wean back down to nasal cannula oxygen, however, she remains very much dependent on that. The patient has a small posterior scalp contusion, was stable and showed no signs of progression. Once the patient's pulmonary status was stable, she was felt to be prepared for discharge to home. PHYSICAL EXAMINATION: VITAL SIGNS: On the day of discharge, temperature 97.4, pulse 75, respirations 14 to 24, O2 saturation 93% on 3 L nasal cannula, and BP 171/79. GENERAL APPEARANCE: Age-appropriate female. She is very frail, but alert. HEART: Regular rate and rhythm without murmurs, gallops, or rubs. LUNGS: Profoundly diminished with only modest air exchange audible. No wheezes or rales are present. ABDOMEN: Soft and nontender. EXTREMITIES: Warm and dry without edema. DISPOSITION: The patient is discharged to home. ACTIVITY: As tolerated and she will remain on a heart healthy diet. She is to continue her oxygen at 3 L as she is still experiencing significant hypoxia with a large AA gradient. DISCHARGE MEDICATIONS: 1. Prednisone 20 mg two p.o. daily for 2 days, then one p.o. daily for 3 days. She will continue with her home doses of, 1. Xanax. 2. Sertraline. 3. Metoprolol. 4. Lisinopril. 5. HCTZ. 6. Pantoprazole. 7. Atrovent. 8. Lasix. 9. Ventolin inhaler. 10. Pulmicort. 11. Tylenol No.3. 12. Aspirin. FOLLOWUP: She is to follow up with her PCP, Claudia Oakley, as well as Dr. Smith and Dr. Smiley. She can return to the hospital should she have any problems prior to her followup. Job ID: [id number] [facility]
--- NOTE | 2018-02-27 18:35 | EKG ---
Test Reason : Blood Pressure : / mmHG Vent. Rate : 125 BPM Atrial Rate : 125 BPM P-R Int : 130 ms QRS Dur : 090 ms QT Int : 320 ms P-R-T Axes : 061 018 032 degrees QTc Int : 461 ms Sinus tachycardia with occasional Premature atrial complexes Possible Left atrial enlargement Possible Right atrial enlargement RSR' or QR pattern in V1 suggests right ventricular conduction delay Nonspecific ST abnormality Abnormal ECG Confirmed by CHACHO CH ([id number]) on 02/27/2018 6:34:55 PM Referred By: LESLIE Confirmed By:CHACHO CH
--- NOTE | 2018-03-01 22:59 | EKG ---
Test Reason : Blood Pressure : / mmHG Vent. Rate : 079 BPM Atrial Rate : 079 BPM P-R Int : 118 ms QRS Dur : 094 ms QT Int : 396 ms P-R-T Axes : 083 020 019 degrees QTc Int : 454 ms Sinus rhythm with Premature atrial complexes Possible Left atrial enlargement Incomplete right bundle branch block Nonspecific ST abnormality Abnormal ECG Confirmed by ADELINA PETERSON MD ([id number]), health editor CARMELITA BAKER ([id number]) on 03/01/2018 10:57:29 PM Also confirmed by ADELINA PETERSON MD ([id number]), health editor CARMELITA BAKER ([id number]) on 03/01/2018 10:58:29 PM Referred By: KRISTEN Confirmed By:ADELINA PETERSON MD
== END 2018-02-20 16:46 | disposition home or self-care (01) | DRG 189 ==
LOC: ERS 08:54 → ERHOLD 11:20 → IMCU/EMU 17:52 → ONC 02-18 14:54
PROVIDERS: ADMIT Internal Medicine Infectious Disease; ATTEND Internal Medicine Infectious Disease
DX: J96.21 Acute and chronic respiratory failure with hypoxia (principal); J44.1 Chronic obstructive pulmonary disease with (acute) exacerbation; I50.32 Chronic diastolic (congestive) heart failure; W19.XXXA Unspecified fall, initial encounter; S00.03XA Contusion of scalp, initial encounter; Y92.009 Unspecified place in unspecified non-institutional (private) residence as the place of occurrence of the external cause; I65.29 Occlusion and stenosis of unspecified carotid artery; I27.20 Pulmonary hypertension, unspecified; I11.0 Hypertensive heart disease with heart failure; E66.9 Obesity, unspecified; Z68.22 Body mass index [BMI] 22.0-22.9, adult; D64.9 Anemia, unspecified; Z87.891 Personal history of nicotine dependence
CPT/HCPCS: 36415; 70450; 71045; 72125; 72170; 80048; 80053; 81003; 81015; 82550; 82553; 82805; 83605; 83690; 83880; 84484; 85025; 87040; 87086; 87804; 90471; 90662; 93005; 93010; 93306; 93880; 94640; 94660; 96360; 96361; 96365; 96366; 96368; 96375; G0008; J0360; J1100; J1956; J2405; J7611; J7620; J7626; Q0162

== ENCOUNTER 2018-03-07 09:21 | Outpatient (CLI) | payer MEDICARE, MEDICAID ==
--- NOTE | 2018-03-07 10:33 | RAD ---
CHEST TWO VIEWS: 03/07/2018 PROVIDED CLINICAL HISTORY: Dyspnea. COMPARISON: 12/03/2016 FINDINGS: The cardiac silhouette remains enlarged. Atherosclerosis involves the aortic arch. Chronic obstruct drea changes are redemonstrated. The posterior costophrenic angles are incompletely included on the l ateral view. No focal consolidation, pleural fluid, or pneumothorax apparent. IMPRESSION: Stable radiographic appearance of the chest. POS: OFF
== END 2018-03-07 09:22 | disposition home or self-care (01) ==
LOC: RAD 09:21
PROVIDERS: ATTEND Internal Medicine Critical Care Medicine
DX: R06.00 Dyspnea, unspecified (principal)
CPT/HCPCS: 71046